=== PATIENT | female | born 1940 | race Caucasian/White ===

== ENCOUNTER 2019-10-27 11:55 | Inpatient (IN) | payer MEDICARE, OTHER ==
--- NOTE | ~2019-10-27 | DS ---
PATIENT:PAUL BRASWELL :36 MEDICAL RECORD: [id number] DISCHARGE SUMMARY ADMISSION DATE: 10/27/19 DISCHARGE DATE: 11/10/19 IDENTIFYING DATA: The patient is 79 years old and she was admitted to the hospital on a voluntary basis. CHIEF COMPLAINT: Agitation. HISTORY OF PRESENT ILLNESS: The patient presented to the Emergency Room confused and agitated. She has been significantly disruptive. She lives in an apartment for the elderly and the supervisors there felt they could not manage her. She was so agitated that she required Haldol and Ativan in the Emergency Room. She was quite confused and endorsing numerous neurovegetative depressive symptoms. HOSPITAL COURSE: The patient was admitted to the hospital and fully evaluated from both a medical, psychological, and social standpoint. It was clear early in the hospitalization that the patient was taking a large number of medications, some of which were redundant and others that had only marginal clinical indication. A discontinuation of most of her medicines took place with careful observation for symptoms that might require them to be restarted. The patient had clear evidence of a depressive illness and anxiety disorder as well as a cognitive impairment. She was treated for urinary tract infection and her chronic back pain was treated without narcotics. She showed improvement and was subsequently transitioned back to an assisted living setting. DISCHARGE DIAGNOSES: 1. AXIS I: Major neurocognitive disorder of the Alzheimer's type. 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 Generalized anxiety disorder. 2. AXIS II: Cluster C personality traits. 3. AXIS III: Urinary tract infection, chronic pain, osteoarthritis, hypertension, hypothyroidism and peripheral neuropathy. 4. AXIS IV: Moderate stressors. 5. AXIS V: Global assessment of functioning is 45. PLAN: At the time of discharge, the patient was not acutely dangerous to herself or others. She was tolerating her medications reasonably well. Her long-term prognosis is guarded. Followup is to be with her primary care physician. TRANSINT:[id number] Voice Confirmation ID: [id number] DOCUMENT ID: [id number] MER AKINS MD CC: [id number] DICTATION DATE: 11/10/19 161 HOUSE DECORATOR: 11/11/19 0326 DIS IN 11/10/19 [address] [place] [address]
[2019-10-27] MEDS ORDERED: LEVOXYL50 MCG PO (12:39)
[2019-10-27] MEDS ORDERED: BUPROPION HCL150 M1 PO (12:40)
[2019-10-27] MEDS ORDERED: BAYER CHEWABLE81 MG PO (12:40)
[2019-10-27] MEDS ORDERED: NORVASC2.5 MG PO (12:40)
[2019-10-27] MEDS ORDERED: ZYRTEC10 MG PO (12:41)
[2019-10-27] MEDS ORDERED: CELEXA10 MG PO (12:41)
[2019-10-27] MEDS ORDERED: FUROSEMIDE20 MG PO (12:42)
[2019-10-27] MEDS ORDERED: ATIVAN1 MG PO ×2 (12:42→23:46)
[2019-10-27] MEDS ORDERED: FLUTICASONE PRO16 GM NASAL (12:42)
[2019-10-27] MEDS ORDERED: NIASPAN500 MG PO (12:43)
[2019-10-27] MEDS ORDERED: OMEPRAZOLE20 M1 PO (12:43)
[2019-10-27] MEDS ORDERED: MUCINEX600 MG PO ×2 (12:43→23:48)
[2019-10-27] MEDS ORDERED: K-DUR20 MEQ PO (12:44)
[2019-10-27] MEDS ORDERED: TUMS X-STR300 MG PO (12:44)
[2019-10-27] MEDS ORDERED: FELDENE20 MG PO (12:44)
[2019-10-27] MEDS ORDERED: VOLTAREN100 GM TOPICAL (12:45)
[2019-10-27] MEDS ORDERED: SINGULAIR10 MG PO (12:45)
[2019-10-27 12:53] LABS: APTT 32.8 SECONDS (22.8-39.4); INR 0.97 (0.85-1.17); PROTIME 12.9 SECONDS (11.6-15.0)
[2019-10-27 12:59] LABS: BASOPHILS 0.5 % (0-2); EOSINOPHILS 4.1 % (0-7); HEMATOCRIT 39.5 % (36.0-48.0); HEMOGLOBIN 12.2 g/dL (12-16); IMMATURE GRANULOCYTES 0.4 % (0-5); LYMPHOCYTES 22.9 % (15-50); MCH 29.5 pg (26.0-34.0); MCHC 30.9 g/dL (31.0-37.0); MCV 95.6 fL (80.0-100.0); MEAN PLATELET VOLUME 9.2 fL (7.4-10.4); MONOCYTES 8.2 % (2-11); NEUTROPHILS 63.9 % (40-80); PLATELET COUNT 347 10x3/uL (130-400); RBC 4.13 10x6/uL (4.00-5.40); RDW 15.4 % (11.5-14.5); WBC 9.4 10x3/uL (4.8-10.8)
[2019-10-27 13:00] VITALS: BP 149/74
[2019-10-27 13:01] LABS: BILIRUBIN NEGATIVE (NEGATIVE); GLUCOSE NEGATIVE (NEGATIVE); KETONE NEGATIVE (NEGATIVE); NITRITE NEGATIVE (NEGATIVE); UROBILINOGEN NORMAL (NORMAL)
[2019-10-27 13:12] LABS: CALC OSMOLALITY 279 mosm/kg (275-300); CALCIUM 9.1 mg/dL (8.5-10.1); CARBON DIOXIDE 31.8 mmol/L (21.0-32.0); CHLORIDE - SERUM 102 mmol/L (98-107); GLUCOSE 92 mg/dL (74-106); POTASSIUM - SERUM 4.1 mmol/L (3.5-5.1); SODIUM 139 mmol/L (136-145); UREA NITROGEN 17 mg/dL (7-18); eGFR NON AFRICAN AMERICAN 56 mL/min (90-120)
[2019-10-27 13:33] LABS: ALBUMIN 3.4 g/dL (3.4-5.0); ALKALINE PHOSPHATASE 95 U/L (30-120); ALT (SGPT) 13 U/L (10-68); BILIRUBIN - TOTAL 0.35 mg/dL (0.2-1.3); CKMB 7.2 U/L (0.0-3.6); CREATINE KINASE 153 UL (21-215); PROTEIN - SERUM 6.5 g/dL (6.4-8.2); TROPONIN-I < 0.017 ng/mL (0.000-0.060)
[2019-10-27 14:00] VITALS: BP 132/54
[2019-10-27 15:00] VITALS: BP 138/76
[2019-10-27 16:09] VITALS: BP 137/66
--- NOTE | 2019-10-27 19:25 | NUR ---
PT RESTLESS AND INTRUSIVE WITH OTHER PATIENTS. AGGRESSIVE WHEN REDIRECTED. ADMINISTERED PRN 0.5 MG ATIVAN AND 2 MG HALDOL IM. WILL CONTINUE TO MONITOR.
[2019-10-27 20:09] VITALS: BP 160/87
--- NOTE | 2019-10-27 20:10 | NUR ---
PT IS SITTING CALMY IN HER WHEELCHAIR. SHE IS STILL ATTEMPTING TO BE INTRUSIVE WITH OTHERS CARE. NO DISTRESS NOTED. WILL CONTINUE TO MONITOR.
--- NOTE | 2019-10-27 21:30 | NUR ---
RECEIVED IN DAYROOM. RESTLESS. HIGH ANXIETY. PRN ATIVAN 0.5 MG IM GIVEN FOR ANXIETY AND HALDOL 2 MG IM GIVEN FOR PSYCHOTIC BEHAVIOR. REDIRECT AND REORIENT NEEDED. RESTING IN BED AT THIS TIME. CONTINUE PLAN OF CARE.
[2019-10-27] MEDS ORDERED: [UNRECOGNIZED DRUG - OTHER] OP (23:33)
[2019-10-27] MEDS ORDERED: VITAMIN D1000 UNIT PO (23:37)
[2019-10-27] MEDS ORDERED: TESSALON PERLE100 MG PO (23:40)
[2019-10-27] MEDS ORDERED: CHLORASEPTIC177 ML TOPICAL (23:41)
[2019-10-27] MEDS ORDERED: CYCLOBENZAPRINE10 MG PO (23:42)
[2019-10-27] MEDS ORDERED: LIDEX 0.05% OIN15 GM TOPICAL (23:43)
[2019-10-27] MEDS ORDERED: HYDROCODON-ACE1 EAC2 PO (23:45)
[2019-10-27] MEDS ORDERED: ANUSOL-HC25 MG RC (23:46)
[2019-10-27] MEDS ORDERED: NYAMYC60 GM TP (23:49)
[2019-10-27] MEDS ORDERED: ZOFRAN4 MG PO (23:50)
[2019-10-27] MEDS ORDERED: MIRALAX17 GM PO (23:51)
[2019-10-27] MEDS ORDERED: KENALOG IN ORABA5 GM TOPICAL (23:52)
[2019-10-28 00:09] VITALS: BP 160/87
--- NOTE | 2019-10-28 01:39 | NUR ---
RESTLESS IN BED AT THIS TIME.
[2019-10-28 08:49] LABS: CHOLESTEROL, TOTAL 182 mg/dL (0-200); HDL CHOLESTEROL 45 mg/dL (32-96); LDL CHOLESTEROL 116 mg/dL (0-100); LDL-HDL RATIO 2.6 ratio (1.5-3.5); TRIGLYCERIDE 105 mg/dL (30-200)
[2019-10-28 10:28] VITALS: BP 140/69
--- NOTE | 2019-10-28 10:43 | NUR ---
The patient is awake and she has poor insight into her situation. She self propels in a w/c. She is pleasant, but she has no idea where she is located. She says she needs to get her medication from [facility] today, she has not shown any inappropriate behaviors this am. Provide prescribed meds. The patient is compliant with meds. Continue POC.
[2019-10-28 13:35] VITALS: Wt 54.8 kg
[2019-10-28 20:11] VITALS: BP 130/61; BP 135/84
--- NOTE | 2019-10-28 22:51 | NUR ---
B.) PT IS ALERT AND ORIENTED TO SELF ONLY. SHE HAS POOR INSIGHT INTO HER SITUATION. SHE IS RECEIVED IN THE DAYROOM IN A GERICHAIR. SHE IS CALM AND COOPERATIVE WITH STAFF. I.) PROVIDED PM MEDICATIONS PRESCRIBED. REDIRECT OFTEN. R.) COMPLIANT WITH ALL MEDICATIONS. EASY TO REDIRECT P.) WILL CONTINUE TO MONITOR.
--- NOTE | 2019-10-29 03:30 | NUR ---
PATIENT GIVEN ATIVAN 0.5 MG PO FOR ANXIETY, PATIENT REPOSITIONED FOR COMFORT.
[2019-10-29 06:09] LABS: RAPID PLASMA REAGIN Non Reactive (Non Reactive)
[2019-10-29 08:33] VITALS: BP 156/71
--- NOTE | 2019-10-29 10:20 | NUR ---
PT SON CALLED JAZZMINE. PASSCODE GIVEN. SHE WAS GIVING HISTORY ABOUT HER. SEVERAL BACK SURGERIES, PRN O2 SAT IN HER ROOM, MUSCLES SPASMS, SHE HAS TO GO LAY DOWN OR SHE WILL GET MUSCLE SPASMS. NURSE ATTEMPTED TO EXPLAIN THAT WE HAD A SCHEDULE WE HAVE TO GO BY AND GROUPS WERE PART OF OUR THERAPY. WE COULD ACCOMADATE MUCH WE COULD. SHE VERBALIZED SOME UNDERSTANDING.
--- NOTE | 2019-10-29 14:39 | PSY ---
PATIENT NAME:PAUL BRASWELL MEDICAL RECORD: [id number] : 36 LOCATION:[facility] ADMISSION DATE: 10/27/19 ACCOUNT: [id number] PSYCHIATRIC EVALUATION DATE OF EVALUATION: 10/28/19 IDENTIFYING DATA: The patient is 79 years old and she is admitted to the hospital on a voluntary basis. CHIEF COMPLAINT: Agitation. HISTORY OF PRESENT ILLNESS: The patient presented to the Emergency Room confused and agitated. She has been having significant disruptive behaviors. She is living in an apartment for the elderly, but has been restless and cannot be redirected. She was so agitated in the Emergency Room that she required Haldol and Ativan and she is still somewhat sedated from this. She also appears clearly significantly confused. She is endorsing a lot of depressive symptoms. PAST MEDICAL HISTORY: Significant for hypothyroidism, hypertension, gastroesophageal reflux disease, and osteoarthritis. PAST PSYCHIATRIC HISTORY: Significant for chronic pain and depression. She has not been diagnosed with a dementing illness in the past. ALLERGIES: PENICILLIN, AMOXICILLIN AND DEMEROL. CURRENT MEDICATIONS: Include Norvasc, aspirin, Wellbutrin, Synthroid, Zyrtec, Celexa, Lasix, Ativan, Mucinex, niacin, Feldene, Voltaren, Flexeril, hydrocodone, Ativan, Zofran and Kenalog ointment. SOCIAL HISTORY: The patient is . She has an adult son who is involved with her care. She has no history of drug or alcohol abuse. She does drink, but only socially. 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 MENTAL STATUS EXAMINATION: The patient is awake, alert and oriented to person and place, but only partially to time and situation. Her mood is flat. Her affect is constricted. Thought processes are circumstantial. Memory, concentration, and abstraction abilities are moderately impaired. She denies any intent to harm herself or others as well as overt psychotic symptoms. ASSESSMENT: AXIS I: Rule out dementia, major depression, generalized anxiety disorder. AXIS II: None. AXIS III: Urinary tract infection, chronic pain, osteoarthritis, hypertension, hypothyroidism, neuropathy. AXIS IV: Moderate. AXIS V: Global assessment of functioning is 40. PLAN: At this time, the patient is admitted to the hospital secondary to depressive symptoms, confusion and some disruptive behaviors. She has clear evidence of cognitive impairment. I am not sure if this is related to mood disorder, polypharmacy and/or an underlying dementing process. At this point, I am going to admit her to the hospital, maintain her current medications and we will attempt to taper them if it is possible. I strongly suspect an underlying dementia, but it is difficult to tell given the large number of medications that she is currently taking. TRANSINT:[id number] Voice Confirmation ID: [id number] DOCUMENT ID: [id number] MER AKINS MD at 1439 CC: [id number] DICTATION DATE: 10/28/19 170 DIRECTOR OF PSYCHOLOGY: 10/28/19 2218 ADM IN [facility] [address] [place] [address]
--- NOTE | 2019-10-29 17:37 | NUR ---
RECEIVED THIS AM IN WHEELCHAIR AT NURSES STATION.ORIENTED TO SELF.COMPLIANT WITH STAFF AND MEDS.AMBULATES HOLDING ONTO WHEELCHAIR.NO BEHAVIORS OBSERVED.WILL CONTINUE WITH CURRENT PLAN OF CARE,MONITOR FOR CHANGES AND SAFETY.
[2019-10-29 20:38] VITALS: BP 142/78
--- NOTE | 2019-10-29 21:57 | NUR ---
RECEIVED PATIENT IN DAYROOM TALKING AND VISITING WITH OTHER PATIENTS, SHE IS CONFUSED, PLEASANT, COMPLIANT WITH MEDS, NO ADVERSE REACTION NOTED, WILL FOLLOW POC AND MONITOR
[2019-10-30 10:36] VITALS: BP 181/117
--- NOTE | 2019-10-30 12:12 | NUR ---
The patient is awake and alert she is pleasant and calm at this time. She was a bit anxious this am and her oxygen level is low, bp high. Lay her down in the recliner and provided oxygen. The patient is c/o pain. Provide prescribed meds. The patient is compliant with meds. Continue POC.
--- NOTE | 2019-10-30 13:12 | NUR ---
Nutrition Follow-up: Not eating well. Ate 10-25% of meals yesterday. Noted pt c/o diarrhea. Diet: Regular PO intake: 30% avg x 6 meals Wt: 120# (10/27) No new labs Meds noted: vitamin D -Encourage PO intake and honor food preferences. -+Ensure with meals. -Monitor wt. -RD following.
[2019-10-30 20:18] VITALS: BP 167/78
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
--- NOTE | 2019-10-31 07:23 | NUR ---
The patient is awake and she knows her name and place. She is anxious and she says she is not, but she says she doesn't want to talk right now. She says she can not move her right leg and she can't do anything because of the hole in her back. She has poor insight into her situation. She does not want to get up this am. Provide prescribed meds, redirect as needed. Continue to monitor her behavior. Continue POC.
[2019-10-31 09:13] VITALS: BP 161/107
--- NOTE | 2019-10-31 10:46 | NUR ---
The patient is delusional this am, she is suggesting that one of the patients is doing harm to another patient and then she believes two of the female patients are her friends and she wants them to be watched over as she feels the other patients are doing harm to them. She is crying now and upset as staff moved her away from the other patients as the other patients are already agitated.
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
--- NOTE | 2019-10-31 12:10 | NUR ---
The patient is not as irritable, but she is intrusive. She asked me what her diagnosis is and I told her what the psychiatrist said and she agreed with the diagnosis.
[2019-10-31 20:00] VITALS: BP 155/92
--- NOTE | 2019-10-31 21:18 | NUR ---
RECEIVED PATIENT IN DAYROOM, SHE IS VERY CONFUSED, ANXIOUS, EASILY BECOMES TEARFUL BUT EASILY DISTRACTED AT THIS TIME, COMPLIANT WIHT MEDS, WILL FOLLOW POC
[2019-11-01 10:35] VITALS: BP 118/78
--- NOTE | 2019-11-01 15:50 | NUR ---
PT IS AWAKE AND ALERT TO SELF ONLY. CALM AND COOPERATIVE WITH ASSESSMENT. NO BEHAVIORS NOTED. PT CAN BE DELUSIONAL AT TIMES. REDIRECT AND REORIENT NEEDED. FALL PRECAUTIONS IN PLACE. WILL CPOC.
[2019-11-01 20:00] VITALS: BP 130/98
--- NOTE | 2019-11-01 20:25 | NUR ---
RECEIVED IN DAYROOM. SITTING IN A CHAIR WITH PEERS AT HER SIDE. SOCIAL AT TIMES. CALM AND COOPERATIVE WITH CARE AND ASSESSMENT. ENCOURAGE TO EXPRESS NEEEDS. REDIRECT AND REORIENT NEEDED. CONTINUES TO SIT CALMLY IN DAYROOM. CONTINUE PLAN OF CARE.
--- NOTE | 2019-11-02 07:58 | NUR ---
REC'D PT IN HALLWAY SOCIALIZING WITH PEERS. CALM AND COOPERATIVE WITH ASSESSMENT, CONFUSION NOTED. PT IS ALERT TO PERSON AND PLACE. NO BEHAVIORS NOTED AT THIS TIME. REDIRECT AND REORIENT NEEDED. FALL PRECAUTIONS IN PLACE. WILL CONTINUE TO MONITOR FOR SAFETY. WILL CPOC.
[2019-11-02 08:18] VITALS: BP 110/54
--- NOTE | 2019-11-02 15:05 | PN ---
PATIENT:PAUL BRASWELL MEDICAL RECORD: [id number] LOCATION:[facility] [address] ADMISSION DATE: 10/27/19 PROGRESS NOTE DATE OF SERVICE: 10/29/2019 SUBJECTIVE: The patient's case was discussed with staff. She has no new complaint. OBJECTIVE: The patient is more alert and interactive today. She denies that she would seek to harm herself or others. ASSESSMENT: Dementia. PLAN: The patient is reporting no discomfort or pain. She will be monitored for clinical changes. Her long-term prognosis is guarded. TRANSINT:[id number] Voice Confirmation ID: [id number] DOCUMENT ID: [id number] MER AKINS MD at 1505 CC: [id number] DICTATION DATE: 10/29/19 1507 SAP SPECIALIST: 10/29/19 2321 ADM IN [id number] [place] [address]
--- NOTE | 2019-11-02 20:26 | NUR ---
RECEIVED IN DAYROOM. SITTING IN A CHAIR WITH PEERS AT HER SIDE. CALM AND COOPERATIVE WITH CARE AND ASSESSMENT. ENCOURAGE TO EXPRESS NEEDS. REDIRECT AND REORIENT NEEDED. CONTINUES TO SIT CALMLY IN DAYROOM. CONTINUE PLAN OF CARE.
[2019-11-02 20:50] VITALS: BP 106/59
--- NOTE | 2019-11-03 08:56 | NUR ---
JAZZMINE CALLED AND WANTED A UPDATE.PASSCODE GIVEN. SHE STATED "NO ONE HAD GIVEN THEM AN UPDATE SINCE SHE CAME IN OVER A WEEK AGO, NO ONE FROM THE STAFF CONTACTED THEM SINCE SHE CAME IN. THEY HAD BEEN PATIENT AND IT WAS TIME THAT THEY WERE NEEDING SOME ANSWERS." NURSE TOOK NAME AND PHONE NUMBER FOR THE DOCTOR. SHE STATED "WHEN HER SON CAME TO VISIT SHE WAS GETTING BETTER NOW SHE IS BACK TRACKING AND CRYING BEGGING TO LEAVE." NURSE LET HER KNOW I COULD LET THE DOCTOR KNOW SHE WANTS TO TALK TO HIM.
[2019-11-03 08:58] VITALS: BP 152/80
--- NOTE | 2019-11-03 13:07 | PN ---
PATIENT:PAUL BRASWELL MEDICAL RECORD: [id number] LOCATION:[facility] [address] ADMISSION DATE: 10/27/19 PROGRESS NOTE DATE OF SERVICE: 11/02/2019 SUBJECTIVE: The patient's case was discussed with staff. She has no new complaint. OBJECTIVE: The patient has limited insight about her situation. She generally is tolerating her medicines well. She is not complaining of pain despite the fact that her narcotics have been discontinued. ASSESSMENT: Dementia. PLAN: Current medicines have been reviewed. Her long-term prognosis is guarded. TRANSINT:[id number] Voice Confirmation ID: [id number] DOCUMENT ID: [id number] MER AKINS MD at 1307 CC: [id number] DICTATION DATE: 11/02/19 1634 [employer]OURED CORPS OFFICER: 11/03/19 0212 ADM IN [facility] [address] [place] [address]
--- NOTE | 2019-11-03 13:45 | NUR ---
SW MET WITH PT'S DIL, JAZZMINE, TO DISCUSS DISEASE PROGRESSION, DIFFERENT LOC PLACEMENTS, AND DISCHARGE PLANNING NEEDS. JAZZMINE VOICED UNDERSTANDING OF DISCUSSION.
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
[2019-11-03 20:00] VITALS: BP 113/65
--- NOTE | 2019-11-03 20:37 | NUR ---
RECEIVED IN DAYROOM. SITTING CALMLY WITH PEERS AT HER SIDE. CALM AND COOPERATIVE WITH CAER AND ASSESSMENT. EMCOURAGE TO EXPESS NEEEDS. REDIRECT AND REORIENT NEEDED. CONTINUES TO SIT CALMLY IN DAYROOM. CONTINUE PLAN OF CARE.
[2019-11-04 08:00] VITALS: BP 143/67
--- NOTE | 2019-11-04 13:04 | NUR ---
RECEIVED IN HALLWAY OUTSIDE OF NURSES STATION. CALM AND COOPERATIVE WITH CARE AND ASSESSMENT. NO BEHAVIORS. REDIRECT AND REORIENT NEEDED. SITTING IN GROUP AT THIS TIME. CONTINUE PLAN OF CARE.
--- NOTE | 2019-11-04 14:00 | NUR ---
JAZMINE RECIEVED A PHONE CALL FROM PT'S JAZZMINE AGUILAR, ASKING FOR UPDATE ON DISCHARGE PLANS AND SEEING IF A REFERRAL WAS MADE BACK TO THE [facility]. SW STATED SHE WILL MAKE REFERRAL BACK TO [facility] TODAY AND THEY WILL COME EVALUATE HER. ONCE PT IS EVALUATED THEY WILL HAVE TO A COVID TEST. WHEN WE GET RESULTS FOR COVID TEST PT CAN DISCHARGE BACK TO [facility]. LAUREN VOICED UNDERSTANDING OF DISCUSSION
--- NOTE | 2019-11-04 14:04 | PN ---
PATIENT:PAUL BRASWELL MEDICAL RECORD: [id number] LOCATION:[facility] [address] ADMISSION DATE: 10/27/19 PROGRESS NOTE DATE OF SERVICE: 11/03/2019 SUBJECTIVE: The patient's case was discussed with staff. She has no new complaint. OBJECTIVE: The patient is tolerating her medications well. She is sleeping and eating reasonably well. ASSESSMENT: Dementia. PLAN: Current medicines have been reviewed. I am going to reduce the dose of her Klonopin slightly. Her long-term prognosis is guarded. TRANSINT:[id number] Voice Confirmation ID: [id number] DOCUMENT ID: [id number] MER AKINS MD at 1404 CC: [id number] DICTATION DATE: 11/03/19 1449 ROUTING MACHINE OPERATOR: 11/04/19 0138 ADM IN [facility] [address] [place] [address]
--- NOTE | 2019-11-04 16:16 | NUR ---
Nutrition Follow-up: Diet: Regular + Ensure with meals PO intake: ~67% average x last 9 meals Last BM: 11/04/19. WT: 118# (11/01/19); Admit WT: 120# (10/28/19) Meds noted: megace, miralax. No new labs. Weight difference noted. Pt with adequate PO intake at this time. Recommend continue current diet and oral nutrition supplements and encourage PO intake. Continue appetite stimulant at medically feasible. RD following.
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
[2019-11-04 20:00] VITALS: BP 143/66
--- NOTE | 2019-11-05 00:53 | NUR ---
B.) PT IS ALERT AND ORIENTED TO SELF AND SITUATION. SHE IS RECEIVED IN THE DAYROOM SOCIALIZING WITH PEERS. SHE IS CALM AND COOPERATIVE. SHE IS PLEASANT WITH STAFF. SHE WAS TEARFUL AT THE BEGINNING OF THE SHIFT BUT QUICKLY CHANGED BEHAVIORS. I.) PROVIDED PM MEDICATIONS PRESCRIBED. REDIRECT NEEDED. R.) COMPLIANT WITH ALL MEDICATIONS. EASY TO REDIRECT P.) WILL CONTINUE TO MONITOR.
--- NOTE | 2019-11-05 08:18 | NUR ---
PT IS ALERT AND ORIENTED TO SELF AND SITUATION. SHE IS CALM AND COOPERATIVE WITH STAFF. SHE SPOKE WITH A MANAGER RECRUITMENT FROM THE [facility] THIS MORNING AND COMPLETED A COVID TEST WITH THAT MANAGER RECRUITMENT. SHE STATED THAT UPON THE RESULTS OF HER COVID TEST AND HER DISCHARGE SHE WOULD BE WELCOME TO COME BACK. SHE IS RECEIVED OUTSIDE THE NURSES DESK SOCIALIZING WITH PEERS. WILL CONTINUE TO MONITOR.
[2019-11-05 10:25] VITALS: BP 138/71
--- NOTE | 2019-11-05 11:00 | NUR ---
SW ALERTED LAUREN, JAZZMINE, [facility] CAME AND EVALUATED PT. SW STATED WE ARE WAITING FOR COVID TEST RESULTS AND PT CAN BE DISCHARGED BACK TO [facility].
--- NOTE | 2019-11-05 12:57 | PN ---
PATIENT:PAUL BRASWELL MEDICAL RECORD: [id number] LOCATION:[facility] [address] ADMISSION DATE: 10/27/19 PROGRESS NOTE DATE OF SERVICE: 11/04/2019 SUBJECTIVE: The patient's case was discussed with staff. She has no new complaint. OBJECTIVE: The patient is in good behavioral control. She is denying any overt psychotic symptoms today. She is not complaining of any pain. ASSESSMENT: Dementia. PLAN: I am going to start the patient on a low dose of Cymbalta to assist with her discomfort. I do not think she should be managed on narcotics. Her long-term prognosis is guarded. I anticipate that she can be transitioned out of the hospital soon if this level of improvement continues. TRANSINT:[id number] Voice Confirmation ID: [id number] DOCUMENT ID: [id number] MER AKINS MD at 1257 CC: [id number] DICTATION DATE: 11/04/19 1448 CHIEF ENTERPRISE ARCHITECT: 11/04/19 1524 ADM IN [id number] [place] [address]
[2019-11-05] MEDS ORDERED: NORVASC5 MG PO (15:26)
[2019-11-05] MEDS ORDERED: ACETAMINOPHEN500 M1 PO (15:27)
[2019-11-05] MEDS ORDERED: KLONOPIN0.5 MG PO (15:28)
[2019-11-05] MEDS ORDERED: VOLTAREN100 GM TOPICAL (15:28)
[2019-11-05] MEDS ORDERED: CYMBALTA20 MG PO (15:28)
[2019-11-05] MEDS ORDERED: AKWA TEARS15 ML EACH EYE (15:30)
[2019-11-05] MEDS ORDERED: MIRALAX17 GM PO (15:30)
[2019-11-05] MEDS ORDERED: Megace ES [CHEMO] PO (15:30)
[2019-11-05] MEDS ORDERED: LIDODERM 5 %1 PATCH TRANSDERM (15:31)
[2019-11-05] MEDS ORDERED: REMOVE PATCH TD (15:31)
--- NOTE | 2019-11-05 17:12 | NUR ---
SW MET WITH PT'S SON, JANESSA. SW DISCUSSED DISCHARGE PLANS, SETTING BOUNDARIES, AND PT'S CONDITION. JANESSA VERBALIZED UNDERSTANDING OF PT'S CONDITION.
[2019-11-05 20:00] VITALS: BP 171/96
--- NOTE | 2019-11-05 23:48 | NUR ---
B) Patient is alert and oriented to person, place calm and cooperative, I) Administered scheduled medications as ordered, monitored for safety R) Mediation compliant, pleasant and friendly toward staff P) Continue plan of care.
--- NOTE | 2019-11-06 09:54 | NUR ---
The patient is pleasnt this am, she may be d/cing today to the [facility]. Her MAR and d/c paperwork is ready to fax, a hard copy is made for hand carry. She is busy and tries to help other patient's, but she is not able to help herself very well as she is in a w/c and c/o a bad back. Provide prescribed meds. The patient is compliant with meds. Continue discharge plan.
[2019-11-06 10:22] VITALS: BP 149/56
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
--- NOTE | 2019-11-06 14:45 | PN ---
PATIENT:PAUL BRASWELL MEDICAL RECORD: [id number] LOCATION:[facility] [address] ADMISSION DATE: 10/27/19 PROGRESS NOTE DATE OF SERVICE: 11/05/2019 SUBJECTIVE: The patient's case was discussed with staff. She has no new complaint. OBJECTIVE: The patient denies intent to harm herself or others. She is tolerating her medicines well. Her cognition has significantly improved and her appetite is better, but still not adequate. ASSESSMENT: Dementia. PLAN: The patient will be transitioned to the assisted living center tomorrow. Her long-term prognosis is guarded. TRANSINT:[id number] Voice Confirmation ID: [id number] DOCUMENT ID: [id number] MER AKINS MD at 1445 CC: [id number] DICTATION DATE: 11/05/19 1524 YARD CLEANER: 11/05/19 2320 ADM IN [id number] [place] [address]
[2019-11-06 20:10] VITALS: BP 147/54
--- NOTE | 2019-11-06 23:44 | NUR ---
B.) PT IS ALERT AND ORIENTED TO SELF AND PLACE. SHE HAS POOR INSIGHT INTO HER SITUATION. SHE IS CALM AND COOPERATIVE WITH STAFF. SHE IS RECEIVED IN THE DAYROOM SOCIALIZING WITH HER PEERS. SHE IS PLEASANT. I.) PROVIDED PM MEDICATIONS. REDIRECT NEEDED. R.) COMPLIANT WITH ALL MEDICATIONS. EASY TO REDIRECT. P.) WILL CONTINUE TO MONITOR.
--- NOTE | 2019-11-07 07:47 | NUR ---
The patient is awake and alert and she is talkative, she has sinus drainage and she is coughing at times, but her lungs are clear. She has poor insight into her situation. We are awaiting test results that the [facility] performed on COVID before she can be discharged. She ambulates independently with a w/c or self propels with a w/c. She tries to assist other patient's but needs reminders to not try as she is unsteady in her balance and she has poor short term memory recall. Provide prescribed meds. Continue POC.
[2019-11-07 11:35] VITALS: BP 138/65
--- NOTE | 2019-11-07 12:46 | PN ---
PATIENT:PAUL BRASWELL MEDICAL RECORD: [id number] LOCATION:[facility] ADMISSION DATE: 10/27/19 PROGRESS NOTE DATE OF SERVICE: 11/06/2019 SUBJECTIVE: The patient's case was discussed with staff. She has no new complaint. OBJECTIVE: The patient is in good behavioral control with poor insight about her situation. She is tolerating her medicines well. ASSESSMENT: Dementia. PLAN: Brief supportive and educational interventions were made. I discussed the patient's situation with her afwqyjqv-io-ozn and son and answered questions. She is going to be transitioned to assisted living as soon as the results on the COVID-19 testing are available. TRANSINT:[id number] Voice Confirmation ID: [id number] DOCUMENT ID: [id number] MER AKINS MD at 1246 CC: [id number] DICTATION DATE: 11/06/19 1526 FINISHED CARPET INSPECTOR: 11/07/19 0039 ADM IN [place] [id number] [place] [address]
[2019-11-07 20:21] VITALS: BP 157/72
--- NOTE | 2019-11-07 23:31 | NUR ---
B.) PT IS ALERT AND ORIENTED TO SELF, PLACE AND SITUATION. SHE IS CALM, COOPERATIVE AND PLEASANT. SHE IS ABLE TO VOICE HER NEEDS AND WANTS. I.) PROVIDED PM MEDICATIONS PRESCRIBED. REDIRECT NEEDED. R.) COMPLIANT WITH ALL MEDICATIONS. EASY TO REDIRECT. P.) WILL CONTINUE TO MONITOR.
[2019-11-08 08:25] VITALS: BP 117/75
--- NOTE | 2019-11-08 11:17 | NUR ---
The patient is dramatic and somatic in conversation. She is inappropriate in behavior as she tells dirty jokes. She is resting easily in her w/c. She got a little irritable with staff because she wanted her four ice packs filled. Staff went to help her in the bathroom, but they did not move fast enough so she came rushing out of the bathroom walking behind her w/c in a fast pace. She was going so fast that staff even said "Slow down." She went and sat down, bundled up and fell back to sleep. Provide prescribed meds. The patient is compliant with meds. Continue POC.
--- NOTE | 2019-11-08 13:04 | PN ---
PATIENT:PAUL BRASWELL MEDICAL RECORD: [id number] LOCATION:[facility] ADMISSION DATE: 10/27/19 PROGRESS NOTE DATE OF SERVICE: 11/07/2019 SUBJECTIVE: The patient's case was discussed with staff. She has no new complaint. OBJECTIVE: The patient is in good behavioral control. The COVID test has not returned, so she could not be transferred to the assisted living center. ASSESSMENT: Dementia. PLAN: The patient will be transitioned out of the hospital as soon as the results of her COVID-19 test are available. TRANSINT:[id number] Voice Confirmation ID: [id number] DOCUMENT ID: [id number] MER AKINS MD at 1304 CC: [id number] DICTATION DATE: 11/07/19 1324 BUILDING CARPENTER: 11/07/19 1739 ADM IN [place] [id number] [place] [id number]
--- NOTE | 2019-11-08 14:52 | PN ---
PATIENT:PAUL BRASWELL MEDICAL RECORD: [id number] LOCATION:[facility] ADMISSION DATE: 10/27/19 PROGRESS NOTE DATE OF SERVICE: 11/08/2019 SUBJECTIVE: The patient's case was discussed with staff. She has no new complaint. OBJECTIVE: The patient is in good behavioral control. She has limited insight about her situation. She has not been aggressive. ASSESSMENT: Dementia. PLAN: The patient will be maintained on current medicines, which I have reviewed. Her long-term prognosis is guarded. TRANSINT:[id number] Voice Confirmation ID: [id number] DOCUMENT ID: [id number] MER AKINS MD at 1452 CC: [id number] DICTATION DATE: 11/08/19 1351 INSPECTOR PRECISION: 11/08/19 1408 ADM IN [facility] [address] [place] [address]
--- NOTE | 2019-11-08 19:52 | NUR ---
RECEIVED IN DAYROOM. SITTING IN A CHAIR WITH PEERS AT HER SIDE. CALM AND COOPERATIVE WITH CARE AND ASSESSMENT. ENCOURAGE TO EXPRESS NEEDS. REDIRECT AND REROEINT NEEDED. CONTINUES TO SIT CALMLY IN DAYROOM. CONTINUE PLAN OF CARE.
[2019-11-08 20:24] VITALS: BP 132/48
[2019-11-09 09:07] VITALS: BP 138/70
--- NOTE | 2019-11-09 10:30 | NUR ---
COVID 19 TEST COMPLETED PER ORDER. AWAITING ON RESULTS AT THIS TIME.
--- NOTE | 2019-11-09 12:00 | NUR ---
RECEIVED IN HALLWAY OUTSIDE OF NURSES STATION. CALM AND COOPERATIVE WITH CARE AND ASSESSMENT. NO BEHAVIORS. REDIRECT AND REORIENT NEEDED. EATING LUNCH AT THIS TIME. CONTINUE PLAN OF CARE.
[2019-11-09 19:45] VITALS: BP 112/62
--- NOTE | 2019-11-09 20:22 | NUR ---
RECEIVED IN DAYROOM. SITTING IN A CHAIR WITH PEERS AT HER SIDE. CALM AND COOPERATIVE WITH CARE AND ASSESSMENT. SOCIAL WITH PEERS. ENCOURAGE TO EXPRESS NEEEDS. REDIRECT AND REORIENT NEEDED. COTNINUES TO SIT CALMLY IN DAYROOM. CONTINUE PLAN OF CARE.
[2019-11-10 09:53] VITALS: BP 109/73
--- NOTE | 2019-11-10 11:42 | NUR ---
SW LEFT VM WITH DIL AND STATED PT WILL DISCHARGE TODAY TO [facility].
--- NOTE | 2019-11-10 13:53 | PN ---
PATIENT:PAUL BRASWELL MEDICAL RECORD: [id number] LOCATION:[facility] ADMISSION DATE: 10/27/19 PROGRESS NOTE DATE OF SERVICE: 11/09/2019 SUBJECTIVE: The patient's case was discussed with staff. She has no new complaint. OBJECTIVE: The patient is partially oriented. Her mood is euthymic. She is eating adequately. She has no aggressive symptoms. ASSESSMENT: Dementia. PLAN: Brief supportive and educational interventions were made. I anticipate the patient can be transitioned out of the hospital as soon as the results of her COVID-19 tests are back. NTS:[id number] Voice Confirmation ID: [id number] DOCUMENT ID: [id number] MER AKINS MD at 1353 CC: [id number] DICTATION DATE: 11/09/19 1532 MUSIC DIRECTOR: 11/10/19 0208 ADM IN [place] [id number] [place] [id number]
--- NOTE | 2019-11-10 14:47 | NUR ---
PATIENT DISCHARGED TO THE [facility]. PAPERWORK FAXED TO THE [facility] AND HARD COPY SENT WITH PATIENT. PERSONAL BELONGINGS SENT WITH PATIENT. MEDICATIONS CALLED INTO [facility].
== END 2019-11-10 14:45 | DRG 884 ==
LOC: D.ER 11:55 → D.PSYCH 16:40
PROVIDERS: Family Medicine; ADMIT Psychiatry & Neurology Psychiatry; ATTEND Psychiatry & Neurology Psychiatry
DX: F03.91 Unspecified dementia, unspecified severity, with behavioral disturbance (principal); F32.9 Major depressive disorder, single episode, unspecified; F41.8 Other specified anxiety disorders; G89.29 Other chronic pain; I10 Essential (primary) hypertension; E03.9 Hypothyroidism, unspecified; J30.89 Other allergic rhinitis; E55.9 Vitamin D deficiency, unspecified; G62.9 Polyneuropathy, unspecified; K21.9 Gastro-esophageal reflux disease without esophagitis; K59.00 Constipation, unspecified; R63.0 Anorexia; L25.9 Unspecified contact dermatitis, unspecified cause; R05 Cough; M19.90 Unspecified osteoarthritis, unspecified site; M62.838 Other muscle spasm

== ENCOUNTER → 2020-10-27 13:59 | Outpatient (CLI) | payer MEDICARE, OTHER ==
[2019-10-28 13:35] VITALS: BMI 24.2
[~2020-10-27 13:59] MED LIST: ACETAMINOPHEN500 M1 PO; AKWA TEARS15 ML EACH EYE; ANUSOL-HC25 MG RC; ATIVAN1 MG PO; BAYER CHEWABLE81 MG PO; BUPROPION HCL150 M1 PO; CELEXA10 MG PO; CHLORASEPTIC177 ML TOPICAL; CYCLOBENZAPRINE10 MG PO; CYMBALTA20 MG PO; FELDENE20 MG PO; FLUTICASONE PRO16 GM NASAL; FUROSEMIDE20 MG PO; HYDROCODON-ACE1 EAC2 PO; K-DUR20 MEQ PO; KENALOG IN ORABA5 GM TOPICAL; KLONOPIN0.5 MG PO; LEVOXYL50 MCG PO; LIDEX 0.05% OIN15 GM TOPICAL; LIDODERM 5 %1 PATCH TRANSDERM; MIRALAX17 GM PO; MUCINEX600 MG PO; Megace ES [CHEMO] PO; NIASPAN500 MG PO; NORVASC2.5 MG PO; NORVASC5 MG PO; NYAMYC60 GM TP; OMEPRAZOLE20 M1 PO; REMOVE PATCH TD; SINGULAIR10 MG PO; TESSALON PERLE100 MG PO; TUMS X-STR300 MG PO; VITAMIN D1000 UNIT PO; VOLTAREN100 GM TOPICAL; ZOFRAN4 MG PO; ZYRTEC10 MG PO; [UNRECOGNIZED DRUG - OTHER] OP
[2020-10-27 15:26] LABS: CREATININE - SERUM 1.1 mg/dL (0.6-1.3)
== END | disposition home or self-care (01) ==
LOC: D.CT 13:59
PROVIDERS: ATTEND Family Medicine
DX: R06.9 Unspecified abnormalities of breathing (principal)